=== PATIENT | male | born 1990 | race Caucasian/White ===

== ENCOUNTER 2018-11-17 23:07 | Emergency (ER) | payer MEDICAID ==
[~2018-11-17] VITALS: Ht 180.3 cm; Wt 70.3 kg
[2018-11-17 23:10] VITALS: BP_SYST 160
[2018-11-18 01:38] VITALS: BP_SYST 141
== END 2018-11-18 01:38 | disposition home or self-care (01) ==
LOC: SED 23:07
DX: F41.9 Anxiety disorder, unspecified (principal); R03.0 Elevated blood-pressure reading, without diagnosis of hypertension
CPT/HCPCS: 99283; 99284